=== PATIENT | female | born 1980 ===

== ENCOUNTER 2024-02-27 16:00 | Outpatient (REF) | payer OTHER, SELFPAY ==
[2024-02-27 21:14] LABS: HCT 44.6 % (36.0-46.0); HGB 14.5 g/dL (11.2-15.7); MCH 30.9 pg (27.0-33.0); MCHC 32.5 % (32.0-36.0); MCV 95 fL (80-95); MPV 11.4 fL (8.0-11.0); Platelet Count 254 10^3/uL (130-400); RBC 4.69 10^6/uL (3.93-5.22); RDW 13.2 % (11.7-14.6); RDW-SD 46.5 fL; WBC 5.23 10^3/uL (4.4-10.8)
[2024-02-27 21:32] LABS: FREE T4 0.99 ng/dL (0.76-1.46); TSH 0.85 uIU/mL (0.36-3.74)
[2024-02-28 18:31] LABS: FSH 16.7 mIU/mL (See Note); LH 5.4 mIU/mL (See Note)
[2024-03-02 00:59] LABS: Androstenedione 64 ng/dL (30-200)
== END 2024-02-27 16:01 | disposition home or self-care (01) ==
LOC: NCHCN 16:00
PROVIDERS: Visit Provider Family Medicine
DX: N92.0 Excessive and frequent menstruation with regular cycle (principal)
CPT/HCPCS: 85027; 82157; 83001; 83002; 84439; 84443